=== PATIENT | female | born 1945 | race Caucasian/White ===

== ENCOUNTER 2016-11-08 15:44 | Emergency (ER) | payer MEDICARE ==
[2016-11-08] MEDS ORDERED: NS 0.9% 1000 ML* 2,000 ML IV ONE (15:54)
--- NOTE | 2016-11-08 16:45 | RAD ---
Indication: Lightheaded, dizziness, near syncope. Comparison: None. Technique: Upright AP 1625 hours Report: Clear lungs and pleural spaces. Negative for pneumothorax. Upper normal heart size. Unremarkable central pulmonary vasculature. Mildly tortuous thoracic aorta. IMPRESSION: No evidence for acute intrathoracic disease.
[2016-11-08 16:46] LABS: Hematocrit 35 % (35-47); Hemoglobin 11.6 g/dl (12.0-16.0); Mean Corpuscular HGB Conc 33 g/dl (31-36); Mean Corpuscular Hemoglobin 29 pg (27-31); Mean Corpuscular Volume 87 fL (80-97); Mean Platelet Volume 10 um3 (7.4-10.4); Red Blood Count 4.04 10^6/ul (4.0-5.4); Red Cell Distribution Width 14 % (10.5-15); White Blood Count 6.4 10^3/ul (3.5-10.8)
[2016-11-08 16:59] LABS: Urine Bacteria Absent (Absent); Urine Bilirubin Negative (Negative); Urine Glucose Negative (Negative); Urine Nitrite Negative (Negative)
[2016-11-08 17:13] LABS: Troponin I 0.02 ng/mL (<0.04)
[2016-11-08 17:19] LABS: Albumin 3.8 g/dL (3.2-5.2); BUN/Creatinine Ratio 14.3 (8-20); C Reactive Protein 10.61 mg/L (< 5.00); Calcium 9.5 mg/dL (8.6-10.3); EGFR African American 57.7 (>60); EGFR Non-African American 44.8 (>60); Globulin 3.2 g/dL (2-4); Magnesium 1.9 mg/dL (1.9-2.7); Potassium 3.6 mmol/L (3.5-5.0); Total Bilirubin 0.5 mg/dL (0.2-1.0)
[2016-11-08 17:24] LABS: TSH (Thyroid Stimulating Horm) 1.45 mcIU/mL (0.34-5.60)
[2016-11-08] MEDS ORDERED: Iodixanol* (CONTRAST) 320 MG/ML 100 ML SDV IV ONE (18:02)
--- NOTE | 2016-11-08 18:59 | RAD ---
INDICATION: Tachycardia. Positive d-dimer. Syncopal episode. COMPARISON: Chest radiograph of the same date. TECHNIQUE: Multidetector CT images were obtained from the lung apices to the upper abdomen with 75 mL Visipaque 320 IV contrast. Pulmonary angiogram protocol. 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 REPORT: Clear lungs and pleural spaces. Negative for pneumothorax. Upper normal RIGHT suprahilar lymph node. Negative for thoracic lymphadenopathy. Upper normal heart size. Physiologic small volume of pericardial fluid. Normal diameter thoracic aorta. No evidence for dissection of the thoracic aorta. No filling defects are identified from the main to the subsegmental pulmonary arteries to indicate presence of a pulmonary embolism. Images through the upper abdomen are remarkable for a partially visualized water density cyst at the mid to upper pole of the LEFT kidney measuring up to 6.7 cm diameter. Moderately atrophic pancreas. Negative for suspicious thoracic osseous lesions. IMPRESSION: 1. No evidence for pulmonary embolism. 2. Upper normal heart size. Physiologic small volume of pericardial fluid. 3. Negative for aneurysm or dissection of the thoracic aorta.
[2016-11-08] MEDS ORDERED: Metoprolol Tartrate TAB* 25 MG PO ONE ×2 (19:46→19:47)
--- NOTE | 2016-11-08 19:52 | ED ---
Deborah Berrios Claudia, scribed for Walter Doe MD on 11/08/16 at 1555 . Syncope/Near Syncope - HPI Summary HPI Summary: 71 year old female presents to the ED via EMS post near syncopal episode at 14: 30pm today. Pt notes she had sudden onset of lightheadedness, and dizziness at 14:30pm today.d one 10 years ago. Pt notes Sx have resolved upon arrival at ED. Pt denies any CP or SOB during the episode. She notes 2 other similar episodes in her past on this past summer and 10 years ago. Pt denies any Cardiac PMHx or any daily medications. In EMS, EKG 1 1511: HR 206 beats/min SVT after pt recived 6mg of adenosine in EMS EKG 2 1531 sinus tachycardia 104 beats/min Pt also received 500mg of nml saline - History Of Current Complaint Hx Obtained From: Patient Onset/Duration: Sudden Onset - 2:30pm today, Resolved Timing: Intermittent Episode Lasting Associated Head Trauma: No Associated Signs And Symptoms: Dizzy, Lightheadedness - Allergies/Home Medications Allergies/Adverse Reactions: Allergies Allergy/AdvReac Type Severity Reaction Status Date / Time No Known Allergies Allergy Verified 11/08/16 18:06 PMH/Surg Hx/FS Hx/Imm Hx Previously Healthy: Yes Endocrine/Hematology History: Denies: Hx Diabetes - Cancer History Hx Chemotherapy: No Hx Radiation Therapy: No - Family History Family History: NO FHx of Breast CA - Social History Occupation: Retired Lives: Alone Alcohol Use: None Hx Substance Use: No Substance Use Type: Reports: None Hx Tobacco Use: No Review of Systems Constitutional: Negative Eyes: Negative ENT: Negative Cardiovascular: Negative Negative: Chest Pain Respiratory: Negative Negative: Shortness Of Breath Gastrointestinal: Negative Genitourinary: Negative Musculoskeletal: Negative Positive: Other - no lower leg pain or swelling Skin: Negative Neurological: Negative Psychological: Normal All Other Systems Reviewed And Are Negative: Yes Physical Exam Triage Information Reviewed: Yes Vital Signs On Initial Exam: Initial Vitals Temp Pulse Resp BP Pulse Ox 98.6 F 108 16 148/92 95 11/08/16 15:46 11/08/16 15:46 11/08/16 15:46 11/08/16 15:46 11/08/16 15:46 Vital Signs Reviewed: Yes Appearance: Positive: Well-Appearing, No Pain Distress Skin: Positive: Warm, Skin Color Reflects Adequate Perfusion, Dry, Other - some scracthes to her lower legs bilaterally Head/Face: Positive: Normal Head/Face Inspection Eyes: Positive: EOMI, DAKOTAH Neck: Positive: Supple, Nontender Cardiovascular: Positive: RRR Abdomen Description: Positive: Nontender, Soft Musculoskeletal: Positive: Normal, Strength/ROM Intact Neurological: Positive: Normal, Sensory/Motor Intact, Alert, Oriented to Person Place, Time Psychiatric: Positive: Affect/Mood Appropriate Diagnostics - Vital Signs Vital Signs Temp Pulse Resp BP Pulse Ox 11/08/16 19:37 105 94 11/08/16 19:36 151/105 11/08/16 18:13 95 26 95 11/08/16 18:00 90 18 117/75 94 11/08/16 17:30 96 21 127/82 94 11/08/16 17:00 95 24 118/77 93 11/08/16 16:41 105 18 105/72 95 11/08/16 16:30 109 23 105/72 94 11/08/16 16:00 109 25 114/55 97 11/08/16 15:52 116 92 11/08/16 15:50 148/92 11/08/16 15:46 98.6 F 108 16 148/92 95 - Laboratory Lab Results: Lab Results 11/08/16 11/08/16 11/08/16 Range/Units 16:20 16:25 16:25 WBC 6.4 (3.5-10.8) 10^3/ul RBC 4.04 (4.0-5.4) 10^6/ul Hgb 11.6 L (12.0-16.0) g/dl Hct 35 (35-47) % MCV 87 (80-97) fL MCH 29 (27-31) pg MCHC 33 (31-36) g/dl RDW 14 (10.5-15) % Plt Count 189 (150-450) 10^3/ul MPV 10 (7.4-10.4) um3 Neut % (Auto) 81.3 (38-83) % Lymph % (Auto) 10.5 L (25-47) % Wallace % (Auto) 5.9 (1-9) % Eos % (Auto) 1.4 (0-6) % Baso % (Auto) 0.9 (0-2) % Absolute Neuts (auto) 5.2 (1.5-7.7) 10^3/ul Absolute Lymphs (auto) 0.7 L (1.0-4.8) 10^3/ul Absolute Monos (auto) 0.4 (0-0.8) 10^3/ul Absolute Eos (auto) 0.1 (0-0.6) 10^3/ul Absolute Basos (auto) 0.1 (0-0.2) 10^3/ul Absolute Nucleated RBC 0 10^3/ul Nucleated RBC % 0 INR (Anticoag Therapy) 0.98 (0.89-1.11) APTT 27.8 (26.0-36.3) seconds D-Dimer, Quantitative 260 H (Less Than 230) ng/mL Sodium (133-145) mmol/L Potassium (3.5-5.0) mmol/L Chloride (101-111) mmol/L Carbon Dioxide (22-32) mmol/L Anion Gap (2-11) mmol/L BUN (6-24) mg/dL Creatinine (0.51-0.95) mg/dL Est GFR ( Amer) (>60) Est GFR (Non-Af Amer) (>60) BUN/Creatinine Ratio (8-20) Glucose (70-100) mg/dL Calcium (8.6-10.3) mg/dL Magnesium (1.9-2.7) mg/dL Total Bilirubin (0.2-1.0) mg/dL AST (13-39) U/L ALT (7-52) U/L Alkaline Phosphatase (34-104) U/L Total Creatine Kinase (10-223) U/L CK-MB (CK-2) (0.6-6.3) ng/mL Troponin I (<0.04) ng/mL C-Reactive Protein (< 5.00) mg/L Total Protein (6.4-8.9) g/dL Albumin (3.2-5.2) g/dL Globulin (2-4) g/dL Albumin/Globulin Ratio (1-3) Lipase (11.0-82.0) U/L TSH (0.34-5.60) mcIU/mL Urine Color Straw Urine Appearance Clear Urine pH 6.0 (5-9) Ur Specific Lyndon 1.005 L (1.010-1.030) Urine Protein Negative (Negative) Urine Ketones Negative (Negative) Urine Blood 2+ H (Negative) Urine Nitrate Negative (Negative) Urine Bilirubin Negative (Negative) Urine Urobilinogen Negative (Negative) Ur Leukocyte Esterase Negative (Negative) Urine WBC (Auto) Absent (Absent) Urine RBC (Auto) 1+(3-5/hpf) H (Absent) Ur Squamous Epith Cells Present H (Absent) Urine Bacteria Absent (Absent) Urine Glucose Negative (Negative) 11/08/16 Range/Units 16:25 WBC (3.5-10.8) 10^3/ul RBC (4.0-5.4) 10^6/ul Hgb (12.0-16.0) g/dl Hct (35-47) % MCV (80-97) fL MCH (27-31) pg MCHC (31-36) g/dl RDW (10.5-15) % Plt Count (150-450) 10^3/ul MPV (7.4-10.4) um3 Neut % (Auto) (38-83) % Lymph % (Auto) (25-47) % Wallace % (Auto) (1-9) % Eos % (Auto) (0-6) % Baso % (Auto) (0-2) % Absolute Neuts (auto) (1.5-7.7) 10^3/ul Absolute Lymphs (auto) (1.0-4.8) 10^3/ul Absolute Monos (auto) (0-0.8) 10^3/ul Absolute Eos (auto) (0-0.6) 10^3/ul Absolute Basos (auto) (0-0.2) 10^3/ul Absolute Nucleated RBC 10^3/ul Nucleated RBC % INR (Anticoag Therapy) (0.89-1.11) APTT (26.0-36.3) seconds D-Dimer, Quantitative (Less Than 230) ng/mL Sodium 140 (133-145) mmol/L Potassium 3.6 (3.5-5.0) mmol/L Chloride 107 (101-111) mmol/L Carbon Dioxide 28 (22-32) mmol/L Anion Gap 5 (2-11) mmol/L BUN 17 (6-24) mg/dL Creatinine 1.19 H (0.51-0.95) mg/dL Est GFR ( Amer) 57.7 (>60) Est GFR (Non-Af Amer) 44.8 (>60) BUN/Creatinine Ratio 14.3 (8-20) Glucose 91 (70-100) mg/dL Calcium 9.5 (8.6-10.3) mg/dL Magnesium 1.9 (1.9-2.7) mg/dL Total Bilirubin 0.50 (0.2-1.0) mg/dL AST 25 (13-39) U/L ALT 14 (7-52) U/L Alkaline Phosphatase 54 (34-104) U/L Total Creatine Kinase 130 (10-223) U/L CK-MB (CK-2) 1.7 (0.6-6.3) ng/mL Troponin I 0.02 (<0.04) ng/mL C-Reactive Protein 10.61 H (< 5.00) mg/L Total Protein 7.0 (6.4-8.9) g/dL Albumin 3.8 (3.2-5.2) g/dL Globulin 3.2 (2-4) g/dL Albumin/Globulin Ratio 1.2 (1-3) Lipase 16 (11.0-82.0) U/L TSH 1.45 (0.34-5.60) mcIU/mL Urine Color Urine Appearance Urine pH (5-9) Ur Specific Lyndon (1.010-1.030) Urine Protein (Negative) Urine Ketones (Negative) Urine Blood (Negative) Urine Nitrate (Negative) Urine Bilirubin (Negative) Urine Urobilinogen (Negative) Ur Leukocyte Esterase (Negative) Urine WBC (Auto) (Absent) Urine RBC (Auto) (Absent) Ur Squamous Epith Cells (Absent) Urine Bacteria (Absent) Urine Glucose (Negative) Result Diagrams: 11/08/16 16:25 11/08/16 16:25 Lab Statement: Any lab studies that have been ordered have been reviewed, and results considered in the medical decision making process. - Radiology CXR Xray Interpretation: No Acute Changes - NO EVIDENCE FOR ACUTE INTRATHORACIC DISEASE Radiology Interpretation Completed By: Radiologist - CT CHEST/THORAX CTA CT Interpretation: No Acute Changes - NO EVIDENCE FOR PULMONARY EMBOLISM. UPPER NORMAL HEART SIZE. PHYSIOLOGIC SMALL VOLUME OF PERICARDIAL FLUID. NEGATIVE FOR ANEURYSM OR DISSECTION OF THE THORACIC AORTA. CT Interpretation Completed By: Radiologist - EKG 1543 Cardiac Rate: Tachycardia EKG Rhythm: Sinus Tachycardia - 108 beats/min Ectopy: None EKG Interpretation: Minimal ST depression in V III and V IV Re-Evaluation - Re-Evaluation 1 Re-Evaluation Time: 17:09 Comment: Discussed results of blood test and discussed further imaging. Course/Dx Assessment/Plan: EMS EKG SHOWED SVT AT 206BPM WHICH BROKE WITH ADENOSINE 6MG IV BY EMS. DISCUSSED RESULTS WITH PATIENT. DISCUSSED WITH DR MEDINA. DISCHARGE HOME ON BID LOPRESSOR. PATIENT'S BP RELATIVELY LOW IN ED THEREFORE, LOPRESSOR 12.5MG PO BID PRESCRIBED. DISCHARGE HOME STABLE. WILL F/U WITH DR MEDINA. - Diagnoses Provider Diagnoses: SVT (supraventricular tachycardia) - Physician Notifications Discussed Care Of Patient With: is paged [phone]. Call returned [phone]. Discussed d/c with follow-up appt. Time Discussed With Above Provider: 19:28 Discharge - Discharge Plan Condition: Stable Disposition: HOME Prescriptions: Metoprolol Tartrate TAB* [Lopressor TAB*] 12.5 mg PO BID #60 tab Patient Education Materials: Supraventricular Tachycardia (ED) Referrals: Haja Prabhakar MD [Primary Care Provider] - Additional Instructions: FOLLOW UP WITH YOUR PRIMARY CARE DOCTOR AND THE BOX PRESS OPERATOR, DR MEDINA. TAKE LORESSOR 12.5MG TWICE A DAY. RETURN TO THE EMERGENCY DEPARTMENT FOR ANY WORSENING OF YOUR CONDITION; CHEST PAIN, SHORTNESS OF BREATH, YOU FEEL LIKE PASSING OUT, YOU FEEL ILL OR QUESTIONS OR CONCERNS. The documentation as recorded by the Deborah batista Claudia accurately reflects the service I personally performed and the decisions made by me, Walter Doe MD.
[2016-11-08 20:00] VITALS: BP 104/73
== END 2016-11-08 20:01 | disposition home or self-care (01) ==
LOC: ED 15:44
DX: I47.1 Supraventricular tachycardia (principal); R55 Syncope and collapse; R42 Dizziness and giddiness
CPT/HCPCS: 36415; 71010; 71275; 80053; 81003; 81015; 82550; 82553; 83605; 83690; 83735; 83880; 84443; 84484; 85025; 85379; 85610; 85730; 86140; 93005; 99283; Q9967